=== PATIENT | male | born 1965 | race Caucasian/White ===

== ENCOUNTER → 2016-05-27 | Outpatient (REF) | payer OTHER ==
[2016-05-27 13:34] LABS: FERRITIN 238 NG/ML (26-388); PERCENT SATURATION 25.2 % (19.7-37.4); TOTAL IRON BINDING CAPACITY 409 UG/DL (250-450)
== END | disposition home or self-care (01) ==
LOC: M LAB REF 12:23
DX: R79.89 Other specified abnormal findings of blood chemistry (principal)

== ENCOUNTER → 2017-01-30 | Outpatient (REF) | payer OTHER | LOC: M LAB REF 12:05 | PROVIDERS: ATTEND Nurse Practitioner Family | DX: R79.89 Other specified abnormal findings of blood chemistry (principal) ==

== ENCOUNTER → 2018-02-01 | Outpatient (CLI) | payer OTHER ==
[2018-02-01 15:03] LABS: IMMUNOGLOBULIN E 24.3 IU/ML (<100)
[2018-02-05 00:07] LABS: CLASS INTERPRETATION 0 (.); F012-IGE GREEN PEA <0.10 kU/L (Class 0); F013-IGE PEANUT 0.28 kU/L (Class 0/I); F014-IGE SOYBEAN <0.10 kU/L (Class 0); F015-IGE WHITE BEAN/PINTO <0.10 kU/L (Class 0); F018-IGE BRAZIL NUT <0.10 kU/L (Class 0); F020-IGE ALMOND <0.10 kU/L (Class 0); F201-IGE PECAN NUT <0.10 kU/L (Class 0); F202-IGE CASHEW NUT <0.10 kU/L (Class 0); F203-IGE PISTACHIO NUT <0.10 kU/L (Class 0); F235-IGE LENTIL <0.10 kU/L (Class 0); F256-IGE WALNUT <0.10 kU/L (Class 0); F287-IGE KIDNEY BEAN <0.10 kU/L (Class 0); F309-IGE CHICK PEA <0.10 kU/L (Class 0); F345-IGE MACADAMIA NUT <0.10 kU/L (Class 0); IGE BLACK BEAN <0.35 kU/L (<0.35)
== END ==
LOC: M SMT 08:35
DX: Z91.018 Allergy to other foods (principal)
CPT/HCPCS: 82785

== ENCOUNTER 2018-02-15 07:28 | Emergency (ER) | payer OTHER ==
[2018-02-15 08:50] LABS: BASO % 0.6 % (0.0-1.0); EOS # 0.1 10^3/uL (0.0-0.50); EOS % 1.6 % (0.0-3.0); HEMATOCRIT 40.1 % (42.0-52.0); HEMOGLOBIN 14.6 g/dl (13.5-17.5); IMMATURE GRANULOCYTE % 0.1 % (0-3.0); LYMPH # 2.6 10^3/uL (1.5-4.5); MEAN CORPUSCULAR HEMOGLOBIN 30.8 pg (27.0-33.0); MEAN CORPUSCULAR HGB CONC 36.4 g/dl (32.0-36.5); MEAN CORPUSCULAR VOLUME 84.6 fl (80.0-96.0); MONO # 0.5 10^3/uL (0.0-0.8); MONO % 7.5 % (0.0-5.0); NEUTROPHILS # 3.5 10^3/uL (1.8-7.7); NEUTROPHILS % 52.2 % (36.0-66.0); PLATELET COUNT, AUTOMATED 187 10^3/uL (150-450); RED BLOOD COUNT 4.74 10^6/uL (4.30-6.10); RED CELL DISTRIBUTION WIDTH 11.6 % (11.5-14.5); WHITE BLOOD COUNT 6.8 10^3/uL (4.0-10.0)
[2018-02-15 09:00] LABS: INR 0.89; PARTIAL THROMBOPLASTIN TIME 28.1 SECONDS (25.4-37.6); PROTHROMBIN TIME 12.1 SECONDS (12.1-14.4)
[2018-02-15 09:05] LABS: D-DIMER QUANT < 270.0 ng/ml (<500)
[2018-02-15 09:11] LABS: ANION GAP 6 MEQ/L (8-16); BLOOD UREA NITROGEN 9 MG/DL (7-18); CALCIUM LEVEL 9.2 MG/DL (8.5-10.1); CARBON DIOXIDE LEVEL 32 MEQ/L (21-32); CHLORIDE LEVEL 103 MEQ/L (98-107); CPK CREATINE PHOSPHOKINASE 131 U/L (39-308); CREATININE FOR GFR 0.93 MG/DL (0.70-1.30); GLOMERULAR FILTRATION RATE > 60.0 (>56); GLUCOSE, FASTING 105 MG/DL (70-100); MB/CK RELATIVE INDEX 1.15 (< OR =4); POTASSIUM SERUM 4.4 MEQ/L (3.5-5.1); SODIUM LEVEL 141 MEQ/L (136-145); TROPONIN I < 0.02 NG/ML (< 0.10)
== END 2018-02-15 10:05 | disposition home or self-care (01) ==
LOC: M ED 07:28
DX: G43.809 Other migraine, not intractable, without status migrainosus (principal); M50.10 Cervical disc disorder with radiculopathy, unspecified cervical region; Z79.899 Other long term (current) drug therapy
CPT/HCPCS: 71046

== ENCOUNTER → 2018-02-24 | Outpatient (REF) | payer OTHER ==
[2018-02-24 13:59] LABS: ERYTHROCYTE SEDIMENTATION RATE 6 mm/hr (0-20)
[2018-02-24 14:18] LABS: FREE T4 0.95 NG/DL (0.76-1.46); RHEUMATOID FACTOR QUANT < 10.0 IU/ML (<15.0); TOTAL PROTEIN 7.3 GM/DL (6.4-8.2)
[2018-02-24 14:27] LABS: ESTIMATED AVERAGE GLUCOSE 105 MG/DL (60-110); HEMOGLOBIN A1c 5.3 %
[2018-02-24 17:42] LABS: FOLATE 13.1 NG/ML
[2018-02-25 14:15] LABS: ANTINUCLEAR ANTIBODIES DIRECT Negative (Negative)
[2018-02-25 15:22] LABS: ALBUMIN 4.75 GM/DL (3.29-5.55); ALPHA-1-GLOBULIN % 3.3 % (2.9-4.9); ALPHA-1-GLOBULINS 0.24 GM/DL (0.17-0.41); ALPHA-2-GLOBULINS 0.66 GM/DL (0.42-0.99); BETA-1-GLOBULINS 0.43 GM/DL (0.28-0.60); BETA-1-GLOBULINS % 5.9 % (4.7-7.2); BETA-2-GLOBULINS 0.34 GM/DL (0.19-0.55); BETA-2-GLOBULINS % 4.7 % (3.2-6.5)
[2018-02-25 15:23] LABS: GAMMA GLOBULIN % 12.1 % (11.1-18.8); GAMMA GLOBULINS 0.88 GM/DL (0.65-1.58)
[2018-02-27 08:42] LABS: VITAMIN E(ALPHA TOCOPHEROL) 16.6 mg/L (7.0-25.1); VITAMIN E(GAMMA TOCOPHEROL) 2.3 mg/L (0.5-5.5)
[2018-03-01 00:07] LABS: VITAMIN B1 LEVEL WHOLE BLOOD 109.8 nmol/L (66.5-200.0); VITAMIN B6,PYRIDOXAL PHOSPHATE 43.4 ug/L (5.3-46.7)
[2018-03-02 10:25] LABS: DRVV SCREEN 41.4 SEC
== END ==
LOC: M LABNEURO 09:27
DX: M54.5 Low back pain (principal); G89.29 Other chronic pain; G43.909 Migraine, unspecified, not intractable, without status migrainosus; M54.12 Radiculopathy, cervical region

== ENCOUNTER 2021-09-17 21:24 | Emergency (ER) | payer OTHER ==
[~2021-09-17] VITALS: Ht 177.8 cm; Wt 86.5 kg
[~2021-09-17 21:24] MED LIST: ATEN25TA
[2021-09-18 01:22] VITALS: BP 131/88
== END 2021-09-18 01:23 | disposition home or self-care (01) ==
LOC: M ED 21:24
DX: M79.662 Pain in left lower leg (principal); M54.9 Dorsalgia, unspecified; I10 Essential (primary) hypertension; E03.9 Hypothyroidism, unspecified; I49.3 Ventricular premature depolarization